=== PATIENT | female | born 1985 | race African-American/Black ===

== ENCOUNTER 2017-03-20 07:20 | Day surgery (SDC) | payer OTHER ==
[~2017-03-20] VITALS: Ht 165.1 cm; Wt 67.1 kg
[~2017-03-20 07:20] MED LIST: B12 LIQUID IJ; HAIR SKIN AND N1 TAB PO; MULTIVITAMIN GUMMIES PO
[2017-03-20] MEDS ORDERED: LORTAB 7.57.5 MG PO (10:48)
[2017-03-20 11:24] VITALS: BP 97/55
== END 2017-03-20 11:10 | disposition home or self-care (01) | DRG 745 ==
LOC: ORM 07:20
PROVIDERS: ATTEND Obstetrics & Gynecology
PROC: 0UBC7ZX Excision of Cervix, Via Natural or Artificial Opening, Diagnostic (ICD-10-PCS; principal; 2017-03-20)
DX: D06.9 Carcinoma in situ of cervix, unspecified (principal)

== ENCOUNTER → 2018-06-05 | Outpatient (REF) | payer OTHER ==
[~2018-06-05] MED LIST changes: +LORTAB 7.57.5 MG PO
== END | disposition home or self-care (01) ==
LOC: LAB 12:22
DX: O36.80X9 Pregnancy with inconclusive fetal viability, other fetus (principal)